=== PATIENT | female | born 1990 | race Caucasian/White ===

== ENCOUNTER 2021-02-04 22:41 | Emergency (ER) | payer MEDICAID ==
[~2021-02-04] VITALS: Ht 142.2 cm; Wt 54.4 kg
[2021-02-04 22:54] VITALS: BP 105/52
--- NOTE | 2021-02-04 22:54 | NUR ---
TO BED AMBULATORY
--- NOTE | 2021-02-04 23:23 | NUR ---
PT PRESENTED TO THE ER C/O VAGINAL BLEEDING X 1400 TODAY. VSS. A&OX4. STEADY GAIT. NO N,V,D,DIZZINESS, WEAKNESS, OR FRANKS. DENIES ANY PAIN. PT BELIEVES SHE IS 6 WEEKS PREGANANT. PT DENIES ANY DYSURIA. LMP 2.12.21. PT SAYS THIS WAS HER 2TH . SHES HAS 3 LIVE BIRTHS. PT SAYS SHES HAD 1 EPISODE OF SATURATED PAD OF BRIGHT RED BLOOD. NO BLEEDING AT THIS TIME. NKDA. PMH: NONE.
--- NOTE | 2021-02-04 23:31 | NUR ---
US AT BEDSIDE.
[2021-02-04 23:32] LABS: BILIRUBIN,URINE 1+ (NEGATIVE); BLOOD, URINE 3+ (NEGATIVE); COLOR,URINE YELLOW (YELLOW); LEUKOCYTE ESTERASE ,URINE TRACE (NEGATIVE); NITRITE, URINE NEGATIVE (NEGATIVE); UGLUCOSE NEGATIVE (NEGATIVE)
[2021-02-04 23:33] LABS: BASOPHILS # (AUTO) 0.1 K/uL (0.00-0.22); EOSINOPHILS # (AUTO) 0.2 K/uL (0-0.4); EOSINOPHILS % (AUTO) 2.7 % (0.0-4.0); HEMATOCRIT 36.7 % (36-48); LYMPHOCYTES # (AUTO) 2.5 K/uL (2.5-16.5); LYMPHOCYTES % (AUTO) 33.7 % (20.5-51.1); MEAN CORPUSCULAR HEMOGLOBIN 29 pg (27-31); MEAN CORPUSCULAR HGB CONC 33 g/dL (33-37); MEAN CORPUSCULAR VOLUME 87.2 fL (80-94); MONOCYTES # (AUTO) 0.5 K/uL (0.8-1.0); MONOCYTES % (AUTO) 7.4 % (1.7-9.3); NEUTROPHILS # (AUTO) 4.1 K/uL (1.8-7.7); NEUTROPHILS % (AUTO) 55.2 % (42.2-75.2); PLATELET COUNT (AUTO) 271 K/uL (140-450); RED BLOOD CELL COUNT(AUTO) 4.21 MIL/uL (4.20-5.40); RED CELL DISTRIBUTION WIDTH 13.4 % (11.6-13.7); WHITE BLOOD COUNT (AUTO) 7.4 K/uL (4.8-10.8)
[2021-02-04 23:54] LABS: ALBUMIN 3.7 g/dL (3.4-5.0); ANION GAP 14.1 (8-16); CARBON DIOXIDE 24.4 mmol/L (21-32); CREATININE 0.6 mg/dL (0.6-1.3); POTASSIUM 3.5 mmol/L (3.5-5.1); TOTAL BILIRUBIN 0.4 mg/dL (0.0-1.0)
--- NOTE | 2021-02-04 23:56 | NUR ---
Dr. Bridges examining patient.
[2021-02-04 23:57] LABS: APPEARANCE,URINE HAZY (CLEAR)
[2021-02-04 23:58] LABS: RBC,URINE TOO NUMEROUS TO COUN /HPF (0-5)
[2021-02-05] MEDS ORDERED: NACL 0.9% 1,000 ML IV ONE (01:20)
--- NOTE | 2021-02-05 01:25 | NUR ---
MD RAMIREZ MADE AWARE OF PTS BP. NEW ORDERS ADDED AND IMPLEMENTED.
[2021-02-05 02:24] VITALS: BP 100/57
--- NOTE | 2021-02-05 02:24 | NUR ---
Patient discharged with v/s stable. Written and verbal after care instructions given and explained. Patient verbalized understanding. Ambulatory with steady gait. All questions addressed prior to discharge. Advised to follow up with PMD.
== END 2021-02-05 02:24 | disposition home or self-care (01) ==
LOC: MED 22:41
DX: O20.0 Threatened abortion (principal); Z3A.01 Less than 8 weeks gestation of pregnancy
CPT/HCPCS: 36415; 76815; 80053; 81001; 84702; 85025; 86886; 86900; 86901; 87086; 96360; 99284; J7030

== ENCOUNTER 2022-11-06 17:47 | Emergency (ER) | payer MEDICAID ==
[~2022-11-06] VITALS: Ht 172.7 cm; Wt 54.4 kg
[2022-11-06 18:03] VITALS: BP 122/62
--- NOTE | 2022-11-06 18:03 | NUR ---
32 y/o female, c/o vaginal bleeding/spotting and pelvic pain 3/10 since yesterday. denies clots or soaked pads. pt lmp: 08/18/22, estimated 11 weeks pregant at this time. a&ox4, ambulates with steady gait. pmh: denies nka med: denies
[2022-11-06 19:34] LABS: BASOPHILS % (AUTO) 0.3 % (0.0-2.0); EOSINOPHILS # (AUTO) 0.2 K/uL (0-0.4); EOSINOPHILS % (AUTO) 3.5 % (0.0-4.0); HEMATOCRIT 35.4 % (36-48); HEMOGLOBIN 11.6 g/dL (12.0-16.0); LYMPHOCYTES # (AUTO) 2.2 K/uL (2.5-16.5); LYMPHOCYTES % (AUTO) 32.4 % (20.5-51.1); MEAN CORPUSCULAR HEMOGLOBIN 28 pg (27-31); MEAN CORPUSCULAR HGB CONC 33 g/dL (33-37); MEAN CORPUSCULAR VOLUME 86.5 fL (80-94); MONOCYTES # (AUTO) 0.5 K/uL (0.8-1.0); MONOCYTES % (AUTO) 6.9 % (1.7-9.3); NEUTROPHILS # (AUTO) 3.9 K/uL (1.8-7.7); NEUTROPHILS % (AUTO) 56.9 % (42.2-75.2); PLATELET COUNT (AUTO) 309 K/uL (140-450); RED CELL DISTRIBUTION WIDTH 13.5 % (11.6-13.7); WHITE BLOOD COUNT (AUTO) 6.9 K/uL (4.8-10.8)
[2022-11-06 19:58] LABS: APPEARANCE,URINE CLEAR (CLEAR); BILIRUBIN,URINE NEGATIVE (NEGATIVE); BLOOD, URINE 2+ (NEGATIVE); COLOR,URINE YELLOW (YELLOW); LEUKOCYTE ESTERASE ,URINE NEGATIVE (NEGATIVE); NITRITE, URINE NEGATIVE (NEGATIVE); UGLUCOSE NEGATIVE (NEGATIVE)
--- NOTE | 2022-11-06 20:03 | NUR ---
PT TO BED #4
[2022-11-06 20:13] LABS: WBC,URINE 0-5 /HPF (0-5)
--- NOTE | 2022-11-06 20:33 | NUR ---
Dr. Li examining patient.
--- NOTE | 2022-11-06 20:40 | NUR ---
Patient lying in bed, A/Ox4, chest rise and fall symmetrical, no c/o pain or s/s of distress, on monitor.
--- NOTE | 2022-11-06 20:41 | NUR ---
Dr. Li, with female scribe at bedside, and use of IPAD translater, at bedside speaking with patient.
[2022-11-06 20:56] VITALS: BP 103/55
== END 2022-11-06 20:56 | disposition home or self-care (01) ==
LOC: MED 17:47
DX: O20.0 Threatened abortion (principal); M54.50 Low back pain, unspecified; Z3A.11 11 weeks gestation of pregnancy
CPT/HCPCS: 36415; 76817; 81001; 81025; 84702; 85025; 86900; 86901; 99284; Q0092

== ENCOUNTER 2022-11-16 10:45 | Observation (INO) | payer MEDICAID ==
[~2022-11-16] VITALS: Ht 152.4 cm; Wt 54.4 kg
[2022-11-16 10:51] VITALS: BP 110/59
[2022-11-16 11:42] LABS: BASOPHILS % (AUTO) 0.6 % (0.0-2.0); EOSINOPHILS # (AUTO) 0.2 K/uL (0-0.4); EOSINOPHILS % (AUTO) 3.5 % (0.0-4.0); HEMATOCRIT 33.8 % (36-48); HEMOGLOBIN 11.2 g/dL (12.0-16.0); LYMPHOCYTES # (AUTO) 1.9 K/uL (2.5-16.5); LYMPHOCYTES % (AUTO) 26.6 % (20.5-51.1); MEAN CORPUSCULAR HEMOGLOBIN 28 pg (27-31); MEAN CORPUSCULAR HGB CONC 33 g/dL (33-37); MEAN CORPUSCULAR VOLUME 85.5 fL (80-94); MONOCYTES # (AUTO) 0.4 K/uL (0.8-1.0); MONOCYTES % (AUTO) 5.3 % (1.7-9.3); NEUTROPHILS # (AUTO) 4.5 K/uL (1.8-7.7); PLATELET COUNT (AUTO) 282 K/uL (140-450); RED BLOOD CELL COUNT(AUTO) 3.96 MIL/uL (4.20-5.40); RED CELL DISTRIBUTION WIDTH 13.5 % (11.6-13.7); WHITE BLOOD COUNT (AUTO) 7.1 K/uL (4.8-10.8)
[2022-11-16 11:46] LABS: APPEARANCE,URINE HAZY (CLEAR); BILIRUBIN,URINE NEGATIVE (NEGATIVE); BLOOD, URINE 2+ (NEGATIVE); COLOR,URINE YELLOW (YELLOW); LEUKOCYTE ESTERASE ,URINE NEGATIVE (NEGATIVE); NITRITE, URINE NEGATIVE (NEGATIVE); UGLUCOSE NEGATIVE (NEGATIVE)
--- NOTE | 2022-11-16 11:49 | NUR ---
DR. ALLEN EVALUATING PATIENT AT BEDSIDE.
[2022-11-16 12:00] LABS: RBC,URINE 0-5 /HPF (0-5)
[2022-11-16 14:54] LABS: PROTHROMBIN TIME 11.8 secs (10.8-13.4)
[2022-11-16] MEDS ORDERED: PROPOFOL 200 MG/20 ML VIAL IV ONE ×2 (16:18→18:55)
[2022-11-16] MEDS ORDERED: fentaNYL citrate 0.05 MG/ML VIAL ONE ×2 (16:18→18:55)
--- NOTE | 2022-11-16 16:27 | NUR ---
jaclyn swabbed at this time
[2022-11-16] MEDS ORDERED: ONDANSETRON 4 MG/2 ML VIAL IVP PRN (16:30)
[2022-11-16] MEDS ORDERED: HYDROmorphone 1 MG/ML AMP IVP PRN (16:30)
[2022-11-16] MEDS ORDERED: diphenhydrAMINE 50 MG/ML VIAL IVP PRN (16:30)
[2022-11-16] MEDS ORDERED: LACTATED RINGERS 1,000 ML IV SCH (16:30)
[2022-11-16] MEDS ORDERED: MEPERIDINE 25 MG/ML SYR IVP PRN (16:30)
--- NOTE | 2022-11-16 17:52 | NUR ---
PT ARRIVED TO [facility] VIA WHEELCHAIR. AOX4 ON RA SATURATING AT 100%. IV ON LEFT A/X 20G. TEMP 98.4, PULSE 60, BP 99/53, RR20. ORIENTED PT TO UNIT, ROOM, RESTROOM AND CALL LIGHT. BED IN LOWEST POSITION. CALL LIGHT WITHIN REACH. ALL SAFETY PRECAUTIONS IN PLACE.
--- NOTE | 2022-11-16 18:00 | NUR ---
Patient will be admitted to care of AGUILA HUBER. Admitted to [facility]. Will go to room 104A. Belongings list completed.
[2022-11-16 18:08] VITALS: BP 99/53
[2022-11-16] MEDS ORDERED: BUPIVACAINE-MPF 0.25% 30 ML VIAL INJ ONE (18:41)
[2022-11-16] MEDS ORDERED: MISOPROSTOL 200 MCG TAB ONE (18:41)
[2022-11-16] MEDS ORDERED: DEXAMETHASONE 4 MG/ML VIAL ONE ×2 (18:55→19:14)
[2022-11-16] MEDS ORDERED: SEVOFLURANE 250 ML BTL INH ONE (18:55)
[2022-11-16] MEDS ORDERED: METOCLOPRAMIDE 10 MG/2 ML INJ VIAL ONE (18:55)
[2022-11-16] MEDS ORDERED: ePHEDrine 50 MG/ML VIAL ONE (19:12)
[2022-11-16] MEDS ORDERED: ONDANSETRON 4 MG/2 ML VIAL ONE (19:13)
--- NOTE | 2022-11-16 19:22 | NUR ---
ENDORSED PT TO PROOF PRESS OPERATOR NURSE FOR CONTINUITY OF CARE. PT OFF UNIT IN OR.
[2022-11-16] MEDS ORDERED: KETOROLAC 30 MG/ML VIAL IVP ONE (19:25)
--- NOTE | 2022-11-16 19:25 | NUR ---
RECEIVED PT FROM AM NURSE FOR CONTINUITY OF CARE. PT IS STABLE
--- NOTE | 2022-11-16 20:00 | NUR ---
PATIENT CAME BACK FROM SURGERY D AND C
--- NOTE | 2022-11-16 23:35 | NUR ---
PATIENT WAS ABLE TO WALK TO THE BATHROOM AND URINATE WITHOUT DIZZINESS INSPITE OF BP OF 88/38. CALLED DR SHEEHAN AND HE SAID PATIENT CAN GO HOME. INFORMED PT THAT SHE CAN GO HOME AND PATIENT AGREED.
[2022-11-16 23:54] VITALS: BP 88/39
--- NOTE | 2022-11-17 01:25 | NUR ---
PATIENT'S FAMILY CAME TO PICK HER UP. PATIENT IS STABLE
== END 2022-11-17 01:25 | disposition home or self-care (01) ==
LOC: MED 10:45 → MTU 14:57
PROVIDERS: ADMIT Obstetrics & Gynecology; ATTEND Obstetrics & Gynecology
DX: O03.4 Incomplete spontaneous abortion without complication (principal); Z20.822 Contact with and (suspected) exposure to COVID-19; D62 Acute posthemorrhagic anemia; Z3A.01 Less than 8 weeks gestation of pregnancy
CPT/HCPCS: 36415; 59820; 76817; 81001; 84702; 85025; 85610; 85730; 86900; 86901; 87086; 87426; 99284; G0378; J1100; J2405; J2704; J2765; J3010; Q0092; J3490; J7030; J7120